=== PATIENT | female | born 1980 | race Caucasian/White ===

== ENCOUNTER → 2020-10-26 | Day surgery (SDC) | payer BC ==
[2020-10-26 13:30] VITALS: BP 115/64
[2020-10-26 13:54] LABS: WBC,FECAL (FECAL LACTOFERRIN) NEGATIVE (NEGATIVE)
[2020-10-27 15:16] LABS: C DIFFICILE TOXIN A&B AMP PROB NEGATIVE (NEGATIVE)
== END | disposition home or self-care (01) ==
LOC: OR 09:20
PROVIDERS: ATTEND Internal Medicine Gastroenterology
DX: K20.90 Esophagitis, unspecified without bleeding (principal); K29.50 Unspecified chronic gastritis without bleeding; B96.81 Helicobacter pylori [H. pylori] as the cause of diseases classified elsewhere; D12.5 Benign neoplasm of sigmoid colon; K62.89 Other specified diseases of anus and rectum; K64.8 Other hemorrhoids; Z01.812 Encounter for preprocedural laboratory examination; Z20.822 Contact with and (suspected) exposure to COVID-19
CPT/HCPCS: 36415; 43239; 43450; 45384; 45385; 83630; 83993; 85651; 86140; 87045; 87177; 87328; 87493; C9113; U0002; 45378; 45380; 86256; 86671

== ENCOUNTER → 2021-06-19 | Outpatient (CLI) | payer OTHER | LOC: US 10:30 | PROVIDERS: ATTEND Internal Medicine Gastroenterology | DX: R10.10 Upper abdominal pain, unspecified (principal); R19.7 Diarrhea, unspecified; K29.60 Other gastritis without bleeding | CPT/HCPCS: 76700 ==

== ENCOUNTER → 2021-07-13 | Outpatient (CLI) | payer OTHER | LOC: NM 11:06 | PROVIDERS: ATTEND Internal Medicine Gastroenterology | DX: R10.10 Upper abdominal pain, unspecified (principal) | CPT/HCPCS: 78227; A9537 ==

== ENCOUNTER → 2024-12-04 | Day surgery (SDC) | payer BC ==
[~2024-12-04] MED LIST: ACETAMINOPHEN 1000 MG/100 ML 100 ML IV ONE; ALLEGRA ALLERGY60 MG PO; FENTANYL CITRATE/PF 100MCG/2 ML INJ ONE; HYOSCYAMINE SULFATE 0.5 MG/ML INJ ONE; KETAMINE 50MG/5ML SYR ONE; LACTATED RINGER'S 1,000 ML ONE; LIDOCAINE HCL 2% LOCAL INJ 5 ML SDV VIAL INJ ONE; ONDANSETRON HCL INJ 2MG/ML 2ML 2 MG/ML VIAL ONE; PROPOFOL IV EMULSION 50 ML IV ONE
[2024-12-04 13:06] VITALS: TEMP 97.2
[2024-12-04 13:50] VITALS: BP 115/79; PULSE 67; RESP 14; O2SAT 100
[2024-12-04 14:16] LABS: WBC,FECAL (FECAL LACTOFERRIN) NEGATIVE (NEGATIVE)
[2024-12-04 14:25] LABS: CDIFF AG QUIK CHEK NEGATIVE (NEGATIVE); CDIFF TOX QUIK CHEK NEGATIVE (NEGATIVE)
[2024-12-07 08:13] LABS: ENDOMYSIAL ANTIBODIES, IGA Negative (Negative)
[2024-12-07 09:37] LABS: TISSUE TRANSGLUTAMINASE IGA AB <2 U/mL (0-3)
== END | disposition home or self-care (01) ==
LOC: OR 09:57
PROVIDERS: ATTEND Internal Medicine Gastroenterology
DX: D12.5 Benign neoplasm of sigmoid colon (principal); K62.1 Rectal polyp; K64.8 Other hemorrhoids; K58.9 Irritable bowel syndrome, unspecified; K22.70 Barrett's esophagus without dysplasia; K21.00 Gastro-esophageal reflux disease with esophagitis, without bleeding; K29.70 Gastritis, unspecified, without bleeding; K44.9 Diaphragmatic hernia without obstruction or gangrene; M79.7 Fibromyalgia; M45.9 Ankylosing spondylitis of unspecified sites in spine; G89.29 Other chronic pain; Z86.0100 Personal history of colon polyps, unspecified; Z80.0 Family history of malignant neoplasm of digestive organs; Z68.31 Body mass index [BMI] 31.0-31.9, adult
CPT/HCPCS: 43239; 45380; 45385; 82784; 83516; 83630; 83993; 86256; 87045; 87177; 87324; 87328; 87449; J0131; J1980; J2003; J2405; J2470; J2704; J3010; J7121